=== PATIENT | male | born 1945 ===

== ENCOUNTER 2024-11-24 05:21 | Observation (INO) | payer MEDICARE, OTHER, SELFPAY ==
[2024-11-23 22:10] VITALS: BP 140/65
[2024-11-23 22:41] LABS: % Basophils 0.5 % (0-2); % Eosinophils 2.8 % (0-6); % Immature Granulocytes 0.7 % (0-0.5); % Lymphocytes 24.5 % (20.5-51.1); % Monocytes 7.4 % (1.7-9.3); % Neutrophils 64.1 % (42.2-75.2); Absolute Eosinophils 0.2 10^3/uL (0-0.7); Absolute Immature Granulocytes 0.1 10^3/uL (0-0.05); Absolute Lymphocytes 2.1 10^3/uL (1.2-3.4); Absolute Monocytes 0.6 10^3/uL (0.1-0.6); Absolute Neutrophils 5.6 10^3/uL (1.4-6.5); Hematocrit 34.4 % (39.0-52.0); Mean Corpuscular Hgb 26.3 pg (27.0-31.0); Mean Corpuscular Volume 82.3 fL (80.0-94.0); Mean Platelet Volume 10.6 fL (7.4-10.4); Nucleated Red Blood Cells % 0 % (-); Platelet Count 153 10^3/uL (130-400); Red Blood Cell Count 4.18 10^6/uL (4.70-6.10); Red Cell Dist. Width 14.7 % (11.5-14.5); White Blood Cell Count 8.7 10^3/uL (4.8-10.8)
[2024-11-23 22:55] LABS: ALT (SGPT) 17 U/L (0-50); AST (SGOT) 19 U/L (17-59); Albumin 3.8 g/dl (3.5-5.0); Alkaline Phosphatase 53 U/L (38-126); Blood Urea Nitrogen 17 mg/dl (9-20); Calcium 8.9 mg/dl (8.4-10.2); Carbon Dioxide 26 mmol/L (22-30); Chloride 106 mmol/L (98-107); Glucose 84 mg/dl (70-99); Potassium 4.5 mmol/L (3.5-5.1); Sodium 140 mmol/L (135-145); Total Bilirubin 0.3 mg/dl (0.2-1.3); Total Protein 6.3 g/dl (6.3-8.2); eGFR > 60.00
[2024-11-23 23:03] LABS: Troponin I < 0.012 ng/ml
[2024-11-24] VITALS (10 sets, daily range): BP systolic 129–187; BP diastolic 48–81
[2024-11-24 01:57] LABS: Troponin I < 0.012 ng/ml
--- NOTE | 2024-11-24 02:38 | ED.GENMED ---
History of Present Illness
General
Chief Complaint: Chest Pain
Source: patient
Exam Limitations: none
Time Seen by Provider: 11/24/24 01:44
Nursing documentation reviewed up to this point in time: agreed with
History of Present Illness
History of Present Illness:
79-year-old male past medical history of diabetes, GERD, hypertension presenting to the emergency department today with concerns of chest pain shortness of breath lightheadedness over the past 2 days. He is also noted some increasing leg swelling
does take Lasix. Chest pain described as pressure nonradiating shortness of breath worse with exertion.
Review of Systems
Review of Systems
Allergies reviewed?: Yes
All Other Systems: ROS reviewed and negative except as documented in HPI and ROS
Phy Exam
Physical Exam
Physical Exam:
GENERAL: Alert , in no apparent distress
EYE: pupils equal and reactive
NECK: Supple, no significant adenopathy.
ENT: o/p clr, mmm.
CARDIAC: Regular rate and rhythm .
LUNGS: Clear breath sounds bilaterally, no acute respiratory distress, no wheezes/rales/rhonchi
ABDOMEN: Soft, without focal tenderness, no r/g, no cvat
NEUROLOGICAL: Alert and oriented, no focal neuro deficits
SKIN: Warm and dry, skin intact.
MUSCULOSKELETAL: +1 pitting edema bilaterally distal to the knees, well perfused.
PSYCH: Normal and appropriate interaction.
Scores
Heart Score for Chest Pain Patients
STEMI patient?: No
History: Moderately Suspicious
ECG: Nonspecific Repolarization
Age: >/= 65 years
Risk Factors: >/= 3 Risk Factors or History of CAD
Troponin: </= Normal Limit
Heart Score for Chest Pain Patients: 6
Heart Score Risk: 20.3% MACE over next 6 weeks
Course
Orders/Labs/Results
Orders:
Orders
11/23/24 22:06
EKG [Electrocardiogram (*1)] Urgent
Reason for Study: Chest Pain
EKG- Treatment ONCE
11/23/24 22:32
Complete Blood Count/With Diff Urgent
Comprehensive Metabolic Panel Urgent
Troponin I Urgent
11/24/24 01:15
EKG [Electrocardiogram (*1)] Urgent
Reason for Study: Chest Pain
Other Reason for Exam: REPEAT EKG
EKG- Treatment ONCE
11/24/24 01:21
Troponin I Urgent
11/24/24 01:44
Chest [CR Chest - 2 Views ] Urgent
Comment: occasionally feels sob
Reason For Exam: chest pain
11/24/24 02:19
Add On- LAB Urgent
Tests Added?: BNP
11/24/24 02:36
Aspirin 325 mg PO NOW STA
Furosemide [Lasix] 40 mg IV ONCE ONE
Abnormal Lab Results
11/23/24 11/24/24
22:32 02:54
RBC 4.18 L 10^6/uL
(4.70-6.10)
Hgb 11.0 L g/dL
(13.0-18.0)
Hct 34.4 L %
(39.0-52.0)
MCH 26.3 L pg
(27.0-31.0)
MCHC 32.0 L g/dL
(33.0-37.0)
RDW 14.7 H %
(11.5-14.5)
MPV 10.6 H fL
(7.4-10.4)
Abs Immat Gran (auto) 0.1 H 10^3/uL
(0-0.05)
Immature Gran % 0.7 H %
(0-0.5)
Creatinine 0.6 L mg/dL
(0.7-1.3)
POC Glucose 115 H mg/dl
(70-99)
11/23/24 22:32
11/23/24 22:32
Vital Signs
Initial and Last Documented VS:
Initial Vital Signs
Temp Pulse Resp BP Pulse Ox
97.9 F 73 22 140/65 95
11/23/24 22:10 11/23/24 22:10 11/23/24 22:10 11/23/24 22:10 11/23/24 22:10
Last Documented Vital Signs
Temp Pulse Resp BP Pulse Ox
97.9 F 78 18 141/69 95
11/23/24 22:10 11/24/24 03:05 11/24/24 02:10 11/24/24 03:05 11/24/24 02:10
MDM/Problems Addressed
MDM/Problems Addressed:
79-year-old male presenting to the emergency department today with concerns of chest pressure over the past 2 days associated shortness of breath worse with exertion some lightheadedness with blood pressure. On arrival here blood pressures normal
range other vital signs normal. Labs without acute abnormalities troponin negative EKG without acute changes chest x-ray showing potential increased vascular markings as well as potential evidence of edema. Symptoms potentially consistent with
heart failure exacerbation. Was given IV dose of Lasix. Plan to admit due to worsening symptoms as an outpatient despite oral diuretic treatment.
*Critical Care Note
Total Time (30-74mins, 75-104mins- exclusive of procedures): Not Applicable
ED Attending Note
-
Portions of this chart may have been created with voice recognition software.� Occasional wrong word or��sound alike� substitutions may have occurred due to the inherent limitations of voice recognition software.
Discharge Plan
Departure
Patient Disposition: Admit
Date of Disposition: 11/24/24
Time of Disposition: 02:42
Admit to: Telemetry
Admit to doctor: Gerard
Presentation/result/management discussed w/ accepting MD/DO: Hospitalist
Patient with high blood pressure during this ER visit?: No
Condition: Fair
Covid-19: Not Applicable
Discharge Problem:
Acute exacerbation of CHF (congestive heart failure)
Prescriptions:
No Action
clonidine HCl 0.1 MG tablet
0.1 mg PO DAILY
allopurinol 300 MG tablet
300 mg PO DAILY
olmesartan [Benicar] 40 MG tablet
40 mg PO DAILY
furosemide [Lasix] 40 MG tablet
40 mg PO DAILY
carvedilol [Coreg] 25 MG tablet
25 mg PO BID
omeprazole 40 MG capsule,delayed release(DR/EC)
40 mg PO DAILY
aspirin [Aspir-Low] 81 MG tablet,delayed release (DR/EC)
81 mg PO DAILY
amlodipine [Norvasc] 10 MG tablet
10 mg PO DAILY
hydralazine 100 MG tablet
50 mg PO BID
metformin 1,000 MG tablet
1,000 mg PO DAILY
fluticasone propionate 1 SPRAY spray,suspension
1 spray intranasal DAILY
pravastatin 40 MG tablet
40 mg PO DAILY
dulaglutide [Trulicity] 3 MG/0.5 ML pen injector
1.5 mg SQ DIRECTED
Cholecalciferol (Vitamin D3) [Vitamin D3] 50 MCG Capsule
50 mcg PO DAILY
insulin glargine [Lantus Solostar U-100 Insulin] 300 UNITS/3 ML insulin pen
Referrals:
Christopher Garza MD [Family Provider, Family Practice]
Interventions
Interventions:
*Risk Screen - Suicide Last Done: 11/23/24 22:10
*General Assessment Last Done: 11/23/24 22:10
*Neglect/Abuse Screening Last Done: 11/23/24 22:10
*ED- Fall Risk Assessment Last Done: 11/24/24 02:07
*ED COVID-19 Vaccine History Last Done: 11/24/24 02:07
ED- Cardiac Assessment Last Done: 11/24/24 02:10
Discharge Date and Time
Print Language: TONGAN
[2024-11-24 02:55] LABS: Glucose - Point of Care 115 mg/dl (70-99)
[2024-11-24] MEDS: LASIX 40 MG IV ×3 (03:05→16:00)
[2024-11-24] MEDS: ASPIRIN 325 MG PO (03:05)
[2024-11-24 03:51] LABS: NT-proBNP 302 pg/ml
--- NOTE | 2024-11-24 05:06 | HPS.HSE ---
Family Physician
-
Family Physician: Christopher Garza MD
Chief Complaint
-
Chest Pain, SOB
History of Present Illness
Patient is a 79y M with PMH significant for ASCVD, HTN and DM-II who presents to ED complaining of chest heaviness and SOB. Patient states that he was hospitalized at [facility] about 3 weeks ago and was treated for pneumonia. He feels improved
from that hospitalization; however, he notes residual chest heaviness and shortness of breath - especially with any exertion / activity. He has no remaining cough, fevers / chills, etc. Patient denies any LE swelling, noted weight gain, etc. He
presented to the ED this evening for further evaluation and treatment.
Medical History
Past Medical History
Past Medical History: Reports Other
Additional Past Medical History:
ASCVD / PAD
Hypertension
DM-II
Peripheral Neuropathy
Meningioma
COPD
BPH
Gout
Past Surgical History: Reports Other
Additional Past Surgical History:
Appendectomy
Bilateral LE Stents
Social History
Tobacco: Smoker (Current every day smoker (none in past 3 weeks since pneumonia hospitalization). > 50 pack years total.)
Alcohol: None
Drug: None
Family History
Family History: Not pertinent
Allergies / Home Medications
Allergies reflects when Allergies were last updated in [employer].
Home Medications with original date entered in [employer]
Allergy/Medication List:
Allergies
Allergy/AdvReac Type Severity Reaction Status Date / Time
No Known Drug Allergies Allergy Pharmacy Verified 10/15/21 11:01
to Review
Home Medications
Cholecalciferol (Vitamin D3) [Vitamin D3] 50 mcg PO DAILY 07/15/21
allopurinol 300 mg tablet 300 mg PO DAILY 07/15/21
amlodipine 10 mg tablet (Norvasc) 10 mg PO DAILY 07/15/21
aspirin 81 mg tablet,delayed release (Aspir-Low) 81 mg PO DAILY 07/15/21
carvedilol 25 mg tablet (Coreg) 25 mg PO BID 07/15/21
clonidine HCl 0.1 mg tablet 0.1 mg PO BID 07/15/21
dulaglutide 3 mg/0.5 mL subcutaneous pen injector (Trulicity) 1.5 mg SQ DIRECTED 07/15/21
fluticasone propionate 50 mcg/actuation nasal spray,suspension 1 spray intranasal DAILY 07/15/21
furosemide 40 mg tablet (Lasix) 40 mg PO DAILY 07/15/21
hydralazine 100 mg tablet 100 mg PO TID 07/15/21
metformin 1,000 mg tablet 1,000 mg PO BID 07/15/21
olmesartan 40 mg tablet (Benicar) 40 mg PO DAILY 07/15/21
omeprazole 40 mg capsule,delayed release 40 mg PO DAILY 07/15/21
pravastatin 40 mg tablet 40 mg PO HS 07/15/21
insulin glargine 100 unit/mL (3 mL) subcutaneous pen (Lantus Solostar U-100 Insulin) 50 unit SC HS 08/06/21
acetaminophen 650 mg tablet 1,300 mg PO Q8H PRN Moderate pain 11/24/24
chlorthalidone 25 mg tablet 25 mg PO DAILY 11/24/24
colchicine 0.6 mg tablet 0.6 mg PO DAILY 11/24/24
duloxetine 60 mg capsule,delayed release 60 mg PO DAILY 11/24/24
finasteride 5 mg tablet 5 mg PO DAILY 11/24/24
gabapentin 300 mg capsule 300 mg PO TID 11/24/24
glimepiride 4 mg tablet 4 mg PO DAILY 11/24/24
meloxicam 15 mg tablet 15 mg PO DAILY 11/24/24
oxybutynin chloride 5 mg tablet,extended release 24 hr 5 mg PO DAILY 11/24/24
polyethylene glycol 3350 17 gram oral powder packet (Miralax) 17 g PO DAILY 11/24/24
tamsulosin 0.4 mg capsule 0.4 mg PO DAILY 11/24/24
trazodone 50 mg tablet 50 mg PO HS 11/24/24
Review of Systems
-
History Source: Patient
A 12 point ROS was completed and negative except as noted: Yes
Constitutional: Reports Fatigue; Denies Fever or Chills
EENT: Denies Sore Throat
Respiratory: Reports Trouble Breathing; Denies Cough or Hemoptysis
Cardiac: Reports Chest Pain; Denies Diaphoresis, Palpitations or Syncope
Abdomen/GI: Denies Abdominal Pain, Nausea or Vomiting
: Denies Dysuria or Frequency
Musculoskeletal: Denies Joint Pain or Edema
Neurological: Denies Dizzy or Headache
Psych: Denies Depression or Anxiety
Physical Exam
Vital Signs
Vital Signs
Temp Pulse Resp BP Pulse Ox
97.9 F 72 16 141/69 92
11/23/24 22:10 11/24/24 03:14 11/24/24 03:14 11/24/24 03:14 11/24/24 03:14
Physical Exam
General: Other (79y M in no acute distress.)
HEENT: Moist mucous membranes, PERRLA and Other (Thick neck.)
Respiratory: Other (Decreased BS at bases - otherwise clear. No rales and no wheezing.)
Cardiac: S1/S2 and Regular Rhythm; No Murmur
GI: Non Tender, Non Distended, Normal Bowel Sounds and Other (Obese / protuberant.)
Musculoskeletal: No Clubbing, No Cyanosis and Other (Trace lower extremity edema.)
Neuro: AO x 3
Laboratory Results
-
11/23/24 22:32
11/23/24 22:32
Laboratory Results
Total Bilirubin 0.3 mg/dl (0.2-1.3) 11/23/24 22:32
AST 19 U/L (17-59) 11/23/24 22:32
ALT 17 U/L (0-50) 11/23/24 22:32
Alkaline Phosphatase 53 U/L (38-126) 11/23/24 22:32
Troponin I < 0.012 ng/ml 11/24/24 01:21
Impression/Plan
-
A/P: Patient is a 79y M with PMH significant for hypertension, DM-II and recent hospitalization for pneumonia who presents to ED complaining of chest heaviness and SOB.
Chest Heaviness / SOB
- Observe overnight for further evaluation and treatment.
- Unclear etiology of symptoms. ACS v CHF v COPD v other.
- Troponin undetectable x 2. Complete 3rd set in AM.
- EKG without evidence of active ischemia.
- Continue current CV med regimen.
- Follow for any new / worsening symptoms.
- Check Echo.
- No significant evidence of volume overload and doubt acute HF exacerbation.
ASCVD / PAD
- Stable. Continue CV med regimen as noted above.
- No current complaints of claudication / lower extremity pain, etc.
COPD
- Likely contributing to current dyspnea - especially after recent pneumonia.
- Obtain records from [facility] for review.
- Nebs ATC and PRN.
- Observe off of systemic steroids for now.
DM-II
- Stable. Continue current basal insulin + SSI coverage as needed.
- Update A1C.
BPH
- Stable. Continue finasteride / tamsulosin.
History of Gout
- Currently on allopurinol and colchicine for prophylaxis.
Obesity due to excess calories
- Affects all aspects of care - including dyspnea sensation.
- Would likely benefit from formal PSG to evaluate for sleep apnea given body habitus.
Polypharmacy
- Extensive medication list. Attempt to consolidate if possible.
DVT Prophylaxis: Lovenox
Code Status: Full
--- NOTE | 2024-11-24 07:51 | W.PN.HOSP.TC ---
Today's Communication/Plan
-
See PN
Assessment / Plan
Assessment / Plan
79yo M with PMHx of CHF, HTN, DM, neuropathy, urinary retention, HLD, BPH, insomnia, on polypharmacy, with recent admission to [facility] around 3 weeks before current admission came with peristent nausea with sweating started right after
his discharge from that hospital. He completed his home Abx course. No abdominal pain reported. Patient however was not taking his meds as prescribed since he felt nauseous while taking them.
A/P:
#Unspecified nausea without abd pain or vomiting
Unclear reason
Pending official Chest XR read with recent pneumonia, but respiratory symptoms resolved
check TSH, HGba1c, Lipase
Cannot r/o polypharmacy, patient is a poor historian, does not know what meds and for what he is taking in the most part. Will need to obtain colateral Hx form family
Potential offenders: two diuretics, colchicine, metformin, meloxicam, trasodone
Non-specific abnormalities on CBC
No LFT abnormalities
Zofran
#Concern for chest pain on admission
trop WNL
EKG without TWI or ST elevation, no concern for ACS
in fact patient does not complain about any chest pain
#Most likely with JOANN
outpatient sleep study recommended with PCP
#DM type 2 with neuropathy
cont home meds
Accuchecks, insulin SS, DM diet
hold metformin
#Chronic CHF
milfd LE swelling with proBNP 300 - no significant signs of fluid overload. At most - acute on chronic CHF 2/2 med noncompliance
Echo
#Essential HTN, resistant
#BPH
#Insomnia
#HLD
#MDD
cont home meds
adjust meds as duplicate exist: chlorthalidone and Lasix
DVT ppx SCDs
Full code
I have spent at least 58min reviewing chart, test results, communication with family and providing direct patient care
Anticipated Discharge: Within 24 hours
Subjective/Interval History
-
Date of Service: November 24, 2024
Objective Data
-
Labs:
Laboratory Results
11/23/24
22:32
WBC 8.7
Hgb 11.0 L
Hct 34.4 L
Plt Count 153
Sodium 140
Potassium 4.5
Chloride 106
Carbon Dioxide 26
BUN 17
Creatinine 0.6 L
Glucose 84
Calcium 8.9
Total Bilirubin 0.3
AST 19
ALT 17
Alkaline Phosphatase 53
Vital Signs:
Vital Signs
Temp Pulse Resp BP Pulse Ox
97.9 F 76 20 155/73 93
11/23/24 22:10 11/24/24 05:08 11/24/24 05:08 11/24/24 05:08 11/24/24 05:08
I&O
11/23/24 11/24/24 11/25/24
06:59 06:59 06:59
Output Total 500 / 500
Balance -500 / -500
Review of Systems
-
History Source: Patient
All other systems: Reviewed and negative
Abdomen/GI: Reports Nausea
Physical Exam
-
General: No Apparent Distress
HEENT: Normocephalic
Respiratory: Clear to Auscultation; Negative Wheezes
Cardiac: Regular Rhythm
GI: Soft, Nontender and Nondistended
Musculoskeletal: No Clubbing, No Cyanosis, Edema, Right Lower Extrem and Edema, Left Lower Extrem
Skin: Warm
Neuro: Awake, Alert, Oriented, AO x 3, No Motor Deficits and Nonfocal/Grossly Intact
Psych: Calm
[2024-11-24] MEDS: ZOFRAN 4 MG IV ×4 (08:06→23:37)
[2024-11-24 08:53] LABS: Lipase 59 U/L (23-300)
[2024-11-24 09:25] LABS: TSH Reflex To Free T4 2.12 uIU/ml (0.47-4.68)
[2024-11-24 09:47] LABS: Glucose - Point of Care 83 mg/dl (70-99)
[2024-11-24 10:06] LABS: Glycohemoglobin (HgbA1c) 7.8 % (4.0-5.6)
[2024-11-24] MEDS: NEURONTIN 300 MG PO (10:29)
[2024-11-24] MEDS: BENICAR 40 MG PO (10:29)
[2024-11-24] MEDS: CYMBALTA DELAYED RELEASE 60 MG PO (10:29)
[2024-11-24] MEDS: ASPIR LOW (ENTERIC COATED) 81 MG PO (10:30)
[2024-11-24] MEDS: COLCHICINE 0.6 MG PO (10:30)
[2024-11-24] MEDS: PROTONIX 40 MG PO (10:30)
[2024-11-24] MEDS: COREG 25 MG PO (10:30)
[2024-11-24] MEDS: FLOMAX 0.4 MG PO (10:30)
[2024-11-24] MEDS: ZYLOPRIM 300 MG PO (10:30)
[2024-11-24] MEDS: LASIX 40 MG PO (10:30)
[2024-11-24] MEDS: PROSCAR 5 MG PO (10:31)
[2024-11-24] MEDS: NOVOLOG FLEXPEN-MODERATE RESISTANCE SC ×3 (10:31→17:01)
--- NOTE | 2024-11-24 10:34 | W.PN.UPDATE ---
Update Note
Progress Note Update
Colchicine is for Gout and patient takes it during flares only
Usual nausea with uncontrolled BP as per family. Most likely exacerbated by untreeated JOANN. Sleep study will need to be done by PCP - son verbalized understanding. Will attempt to control BP, provide extra dose of lasix and after Echo - D/C
[2024-11-24] MEDS: DUONEB INH (10:46)
[2024-11-24 12:17] LABS: Glucose - Point of Care 106 mg/dl (70-99)
[2024-11-24] MEDS: DUONEB 3 ML INH ×3 (12:18→20:27)
--- NOTE | 2024-11-24 12:26 | W.PN.UPDATE ---
Update Note
Progress Note Update
#Acute hypoxic insufficiency 2/2 milf HFpEF exacerbation
Lasix, daily weight, follow electrolytes and Cr
wean off O2
#Medication non-compliance
As per further conversation with granddaughter bedside- patient not compliant with meds and takes them 'As needed'
Will hold off Clonidine and Hydralazine and decrease carvedilol to avoid hypotension, follow BP
[2024-11-24 13:17] LABS: Magnesium 1.5 mg/dl (1.6-2.3); Phosphorus 3.4 mg/dl (2.5-4.5)
[2024-11-24] MEDS: MAGNESIUM SULFATE 50 IV (13:43)
--- NOTE | 2024-11-24 16:17 | W.PN.UPDATE ---
Update Note
Progress Note Update
Not clear explanation of hypoxia with minimal pyulmonary edema on XR. Will check DDimer since Wells score low. If elevated CTA chest, otherwise - CT w/o contrast to avoid possibility AVNI with IV diuresis
[2024-11-24 16:40] LABS: Glucose - Point of Care 141 mg/dl (70-99)
[2024-11-24 17:06] LABS: Lactic Acid 1.4 mmol/L (0.7-2.0)
[2024-11-24] MEDS: LOVENOX 40 MG SC (17:10)
[2024-11-24] MEDS: REGLAN 5 MG IV (17:39)
[2024-11-24] MEDS: OMNIPAQUE 50 ML PO (17:42)
[2024-11-24] MEDS: COREG 12.5 MG PO (20:50)
[2024-11-24 21:48] LABS: Glucose - Point of Care 171 mg/dl (70-99)
[2024-11-24] MEDS: DESYREL 50 MG PO (22:50)
[2024-11-24] MEDS: LANTUS 0.5 UNITS SC (22:50)
[2024-11-24] MEDS: PRAVACHOL 40 MG PO (22:51)
[2024-11-25] VITALS (9 sets, daily range): BP systolic 93–162; BP diastolic 45–77
[2024-11-25 07:18] LABS: Glucose - Point of Care 102 mg/dl (70-99)
[2024-11-25] MEDS: NOVOLOG FLEXPEN-MODERATE RESISTANCE SC ×2 (07:31→16:06)
[2024-11-25] MEDS: DUONEB 3 ML INH ×4 (08:17→20:22)
[2024-11-25 08:56] LABS: Hematocrit 35.9 % (39.0-52.0); Hemoglobin 11.5 g/dL (13.0-18.0); Mean Corpuscular Hgb 26.1 pg (27.0-31.0); Mean Corpuscular Volume 81.4 fL (80.0-94.0); Mean Platelet Volume 10.8 fL (7.4-10.4); Platelet Count 150 10^3/uL (130-400); Red Blood Cell Count 4.41 10^6/uL (4.70-6.10); Red Cell Dist. Width 14.5 % (11.5-14.5); White Blood Cell Count 6.8 10^3/uL (4.8-10.8)
[2024-11-25 09:17] LABS: Troponin I 0.016 ng/ml
[2024-11-25 09:32] LABS: Blood Urea Nitrogen 16 mg/dl (9-20); Calcium 8.8 mg/dl (8.4-10.2); Carbon Dioxide 35 mmol/L (22-30); Chloride 99 mmol/L (98-107); Glucose 101 mg/dl (70-99); Magnesium 1.5 mg/dl (1.6-2.3); Potassium 3.9 mmol/L (3.5-5.1); Sodium 139 mmol/L (135-145); eGFR > 60.00
[2024-11-25] MEDS: BENICAR 40 MG PO (09:43)
[2024-11-25] MEDS: CYMBALTA DELAYED RELEASE 60 MG PO (09:43)
[2024-11-25] MEDS: ASPIR LOW (ENTERIC COATED) 81 MG PO (09:43)
[2024-11-25] MEDS: FLOMAX 0.4 MG PO (09:43)
[2024-11-25] MEDS: ZYLOPRIM 300 MG PO (09:43)
[2024-11-25] MEDS: PROTONIX 40 MG PO (09:44)
[2024-11-25] MEDS: LASIX 40 MG IV ×2 (09:44→17:26)
[2024-11-25] MEDS: PROSCAR 5 MG PO (09:44)
[2024-11-25] MEDS: COREG 12.5 MG PO ×2 (09:44→21:14)
[2024-11-25] MEDS: ZOFRAN 4 MG IV (09:51)
[2024-11-25] MEDS: MAGNESIUM SULFATE 100 IV (09:51)
--- NOTE | 2024-11-25 11:03 | CM ---
Patient seen bedside, patient encouraged CM to speak w/ son for initial assessment as he is limited in [place]. Patient is a 79y M with PMH significant for ASCVD, HTN and DM-II who presents to ED complaining of chest heaviness and SOB.
CM spoke w/ patient's son, Tristen. Per Tristen, patient resides w/ spouse in a 1st flr apartment- no steps. Independent w/ use of a cane, independent w/ADLs. Has additional shower chair and grab bar in the bathroom. No SNF/HC hx reported. Tristen shared
spouse certainly had HC but not patient.
Address, point of contact and insurance verified
PCP: Christopher Garza
Pharmacy: [facility]
Patient admitted as obs. ROACH form explained to Tristen, copy on chart
Plan: Home, no needs anticipated
[2024-11-25 12:35] LABS: Glucose - Point of Care 179 mg/dl (70-99)
--- NOTE | 2024-11-25 12:58 | W.PN.HOSP.TC ---
Today's Communication/Plan
-
home O2 eval
Assessment / Plan
Assessment / Plan
79yo M with PMHx of CHF, HTN, DM, neuropathy, urinary retention, HLD, BPH, insomnia, on polypharmacy, with recent admission to [facility] around 3 weeks before current admission came with peristent nausea with sweating started right after
his discharge from that hospital. He completed his home Abx course. No abdominal pain reported. Patient however was not taking his meds as prescribed since he felt nauseous while taking them.
A/P:
#Unspecified nausea without abd pain or vomiting
Unclear reason
Pending official Chest XR read with recent pneumonia, but respiratory symptoms resolved
check TSH, HGba1c, Lipase
Cannot r/o polypharmacy, patient is a poor historian, does not know what meds and for what he is taking in the most part. Will need to obtain colateral Hx form family
Potential offenders: two diuretics, colchicine, metformin, meloxicam, trasodone
Non-specific abnormalities on CBC
No LFT abnormalities
Zofran
#Subcentimeter hypodense right thyroid lesion
US with PCP
#Left adrenal nodule likely a benign adrenal adenoma
#Solid L renal mass
MRI as outpatient with PCP - patient and son bedside verbalized understanding
#Acute hypoxic insufficiency 2/2 mild HFpEF exacerbation
Lasix, daily weight, follow electrolytes and Cr
wean off O2
DDimer low, with wells 0 - no concern for VTE
CT chest without edema or pneumonia
Echo: Ef 55-60%, nomal diastolic function, Elevated pulmonary pressure, most liekly 2/2 JOANN - stressed need for outpatient sleep study - patient and son bedside verbalized understanding
#Medication non-compliance
As per further conversation with granddaughter bedside- patient not compliant with meds and takes them 'As needed'
Will hold off Clonidine and decrease hydralazine and carvedilol to avoid hypotension, follow BP
#Concern for chest pain on admission
trop WNL
EKG without TWI or ST elevation, no concern for ACS
in fact patient does not complain about any chest pain
#Most likely with JOANN
outpatient sleep study recommended with PCP
#DM type 2 with neuropathy
cont home meds
Accuchecks, insulin SS, DM diet
hold metformin
#Chronic CHF
milfd LE swelling with proBNP 300 - no significant signs of fluid overload. At most - acute on chronic CHF 2/2 med noncompliance
Echo
#Essential HTN, resistant
#BPH
#Insomnia
#HLD
#MDD
cont home meds
adjust meds as duplicate exist: chlorthalidone and Lasix
DVT ppx SCDs
Full code
I have spent at least 38min reviewing chart, test results, communication with family and providing direct patient care
Anticipated Discharge: Within 24 hours
Subjective/Interval History
-
Date of Service: November 25, 2024
Objective Data
-
Labs:
Laboratory Results
11/25/24
08:26
WBC 6.8
Hgb 11.5 L
Hct 35.9 L
Plt Count 150
Sodium 139
Potassium 3.9
Chloride 99
Carbon Dioxide 35 H
BUN 16
Creatinine 0.8
Glucose 101 H
Calcium 8.8
Vital Signs:
Vital Signs
Temp Pulse Resp BP Pulse Ox
98.0 F 80 16 144/64 92
11/25/24 11:15 11/25/24 12:02 11/25/24 12:02 11/25/24 11:15 11/25/24 11:15
I&O
11/24/24 11/25/24 11/26/24
06:59 06:59 06:59
Intake Total 720 / 720
Output Total 500 / 500 1100 / 1100
Balance -500 / -500 -380 / -380
Review of Systems
-
History Source: Patient
All other systems: Reviewed and negative
Physical Exam
-
General: No Apparent Distress
HEENT: Normocephalic
Respiratory: Clear to Auscultation
GI: Soft, Nontender and Nondistended
Musculoskeletal: No Clubbing, No Cyanosis and No Edema
Neuro: Awake, Alert, Oriented and AO x 3
Psych: Calm
[2024-11-25] MEDS: NOVOLOG FLEXPEN-MODERATE RESISTANCE 1 UNITS SC (13:51)
[2024-11-25 16:04] LABS: Glucose - Point of Care 136 mg/dl (70-99)
[2024-11-25] MEDS: LOVENOX 40 MG SC (17:26)
[2024-11-25] MEDS: APRESOLINE 25 MG PO ×2 (17:27→21:14)
[2024-11-25] MEDS: PRAVACHOL 40 MG PO (21:14)
[2024-11-25] MEDS: LANTUS 0.5 UNITS SC (21:14)
[2024-11-25] MEDS: DESYREL 50 MG PO (21:14)
[2024-11-25 21:15] LABS: Glucose - Point of Care 200 mg/dl (70-99)
[2024-11-26 03:00] VITALS: BP 145/70
[2024-11-26 07:00] VITALS: BP 152/54
[2024-11-26 07:39] LABS: Blood Urea Nitrogen 19 mg/dl (9-20); Calcium 8.8 mg/dl (8.4-10.2); Carbon Dioxide 37 mmol/L (22-30); Chloride 99 mmol/L (98-107); Glucose 104 mg/dl (70-99); Magnesium 1.7 mg/dl (1.6-2.3); Potassium 3.7 mmol/L (3.5-5.1); Sodium 142 mmol/L (135-145); eGFR > 60.00
[2024-11-26 07:45] LABS: Glucose - Point of Care 99 mg/dl (70-99)
[2024-11-26] MEDS: NOVOLOG FLEXPEN-MODERATE RESISTANCE SC ×2 (07:47→11:36)
[2024-11-26] MEDS: DUONEB 3 ML INH ×3 (07:49→15:54)
[2024-11-26] MEDS: BENICAR 40 MG PO (08:31)
[2024-11-26] MEDS: PROTONIX 40 MG PO (08:31)
[2024-11-26] MEDS: ASPIR LOW (ENTERIC COATED) 81 MG PO (08:31)
[2024-11-26] MEDS: CYMBALTA DELAYED RELEASE 60 MG PO (08:31)
[2024-11-26] MEDS: MAGNESIUM SULFATE 50 IV (08:31)
[2024-11-26] MEDS: LASIX 40 MG IV ×2 (08:32→15:33)
[2024-11-26] MEDS: PROSCAR 5 MG PO (08:32)
[2024-11-26] MEDS: APRESOLINE 25 MG PO ×2 (08:32→15:34)
[2024-11-26] MEDS: COREG 12.5 MG PO (08:32)
[2024-11-26] MEDS: FLOMAX 0.4 MG PO (08:32)
[2024-11-26] MEDS: ZYLOPRIM 300 MG PO (08:32)
[2024-11-26] MEDS: ZOFRAN 4 MG IV (08:48)
[2024-11-26 11:00] VITALS: BP 137/58
[2024-11-26 11:35] LABS: Glucose - Point of Care 148 mg/dl (70-99)
--- NOTE | 2024-11-26 11:58 | CM ---
Discussed w/ hospitalist, patient stable for d/c today.
Home O2 assessed, patient requiring 4L O2. O2 request sent to [facility] via fax. Portable to be delivered to patient bedside, concentrator will be delivered to patient's home
Updated patient on O2 needs
Plan: D/c home today w/ O2 thru [employer]
--- NOTE | 2024-11-26 12:09 | W.PN.HOSP.TC ---
Today's Communication/Plan
-
dc
Assessment / Plan
Assessment / Plan
79yo M with PMHx of CHF, HTN, DM, neuropathy, urinary retention, HLD, BPH, insomnia, on polypharmacy, with recent admission to [facility] around 3 weeks before current admission came with peristent nausea with sweating started right after
his discharge from that hospital. He completed his home Abx course. No abdominal pain reported. Patient however was not taking his meds as prescribed since he felt nauseous while taking them. Nausea resolved with diuresis, supplemental O2, holding
metformin. Seems euvolemic on assessment. Unclear if O2 requirements are new or previous intermittent hypoxia. Medically stable for d/c home with supplemental O2 as per home O2 assesmen: 3L rest and 4L on exertion and to follow with established
rabbit breeder PRINCESS. Lasix to be increased to BID and BMP recommended in 3-5 days with PCP - patient and family informed on instructions. Solid L renal mass and L adrenal adenoma will need MRI with PCP - family verbalized understanding of the
instructions. thyroid nodule known to patient and he had biopsy for it - benign as per son Medically stable for d/c home with home O2 when arranged by CM
A/P:
#Unspecified nausea without abd pain or vomiting
Unclear reason
TSH, Lipase WNL
Cannot r/o polypharmacy, patient is a poor historian, does not know what meds and for what he is taking in the most part. Will need to obtain collateral Hx form family
Potential offenders: two diuretics, colchicine, metformin, meloxicam, trazodone
Non-specific abnormalities on CBC
No LFT abnormalities
Zofran
#Subcentimeter hypodense right thyroid lesion
US with PCP
#Left adrenal nodule likely a benign adrenal adenoma
#Solid L renal mass
MRI as outpatient with PCP - patient and son bedside verbalized understanding
#Acute hypoxic insufficiency 2/2 mild HFpEF exacerbation
Lasix, daily weight, follow electrolytes and Cr
wean off O2
DDimer low, with wells 0 - no concern for VTE
CT chest without edema or pneumonia
Echo: Ef 55-60%, normal diastolic function, Elevated pulmonary pressure, most likely 2/2 JOANN - stressed need for outpatient sleep study - patient and son bedside verbalized understanding
#Medication non-compliance
As per further conversation with granddaughter bedside- patient not compliant with meds and takes them 'As needed'
Will hold off Clonidine and decrease hydralazine and carvedilol to avoid hypotension, follow BP
#Concern for chest pain on admission
trop WNL
EKG without TWI or ST elevation, no concern for ACS
in fact patient does not complain about any chest pain
#Most likely with JOANN
outpatient sleep study recommended with PCP
#DM type 2 with neuropathy
cont home meds
Accuchecks, insulin SS, DM diet
hold metformin
#Chronic CHF
mild LE swelling with proBNP 300 - no significant signs of fluid overload. At most - acute on chronic CHF 2/2 med noncompliance
Echo
#Asymmptomatic cholelithiasis
#R renal angiomyolipomas
#Simple renal cysts
#Essential HTN, resistant
#BPH
#Insomnia
#HLD
#MDD
#Diverticulosis /o diverticulitis
cont home meds
adjust meds as duplicate exist: chlorthalidone and Lasix
DVT ppx SCDs
Full code
I have spent at least 38min reviewing chart, test results, communication with family and providing direct patient care
Anticipated Discharge: Today
Subjective/Interval History
-
Date of Service: November 26, 2024
Objective Data
-
Labs:
Laboratory Results
11/26/24
05:56
Sodium 142
Potassium 3.7
Chloride 99
Carbon Dioxide 37 H
BUN 19
Creatinine 0.8
Glucose 104 H
Calcium 8.8
Vital Signs:
Vital Signs
Temp Pulse Resp BP Pulse Ox
97.5 F 80 16 137/58 99
11/26/24 11:00 11/26/24 11:35 11/26/24 11:35 11/26/24 11:00 11/26/24 11:00
I&O
11/25/24 11/26/24 11/27/24
06:59 06:59 06:59
Intake Total 720 / 720 650 / 650
Output Total 1100 / 1100 1250 / 1250
Balance -380 / -380 -600 / -600
Review of Systems
-
History Source: Patient
All other systems: Reviewed and negative
Physical Exam
-
General: Obese
HEENT: Moist Mucous Membranes
Respiratory: Clear to Auscultation
Cardiac: Regular Rhythm
GI: Soft, Nontender and Nondistended
Musculoskeletal: No Clubbing, No Cyanosis and No Edema
Neuro: Awake, Alert, Oriented and AO x 3
Psych: Calm
--- NOTE | 2024-11-26 12:57 | W.DCSUMMARY ---
Discharge Summary
Discharge Data
Date of Admission: 11/24/24
Date of Discharge: 11/26/24
-
Pending Results: No
Hospital Course
79yo M with PMHx of CHF, HTN, DM, neuropathy, urinary retention, HLD, BPH, insomnia, on polypharmacy, with recent admission to [facility] around 3 weeks before current admission came with peristent nausea with sweating started right after
his discharge from that hospital. He completed his home Abx course. No abdominal pain reported. Patient however was not taking his meds as prescribed since he felt nauseous while taking them. Nausea resolved with diuresis, supplemental O2, holding
metformin. Seems euvolemic on assessment. Unclear if O2 requirements are new or previous intermittent hypoxia. Medically stable for d/c home with supplemental O2 as per home O2 assesmen: 3L rest and 4L on exertion and to follow with established
gang ripsaw operator PRINCESS. Lasix to be increased to BID and BMP recommended in 3-5 days with PCP - patient and family informed on instructions. Solid L renal mass and L adrenal adenoma will need MRI with PCP - family verbalized understanding of the
instructions. thyroid nodule known to patient and he had biopsy for it - benign as per son Medically stable for d/c home with home O2 when arranged by CM
I have spent at least 38min reviewing chart, test results, communication with family and providing direct patient care
Patient was managed for:
#Unspecified nausea without abd pain or vomiting
#Hypomagnesemia
#Subcentimeter hypodense right thyroid lesion
#Left adrenal nodule likely a benign adrenal adenoma
#Solid L renal mass
#Acute hypoxic insufficiency 2/2 mild HFpEF exacerbation
#Medication non-compliance
#Concern for chest pain on admission
#Most likely with JOANN
#DM type 2 with neuropathy
#acute on Chronic diastolic CHF
#Pulmonary HTN
#Asymmptomatic cholelithiasis
#R renal angiomyolipomas
#Simple renal cysts
#Essential HTN, resistant
#BPH
#Insomnia
#HLD
#MDD
#Diverticulosis /o diverticulitis
Discharge Plan
-
Patient Disposition: Home (Routine Discharge)
Discharge Diagnosis/Procedures: Nausea
Diet: No added salt
Driving Restrictions: As prior to admission
Blood Work: BMP with family doctor in 3-5 days
Activity Restrictions/Additional Instructions:
Follow up with established gang ripsaw operator PRINCESS
Referrals:
Christopher Garza MD [Family Provider, Family Practice] - in less than 1 week
Referral Note: #Left adrenal nodule likely a benign adrenal adenoma
#Solid L renal mass
MRI abd attn to kidneys
#Subcentimeter hypodense right thyroid lesion
thyroid US
Prescriptions:
New
hydralazine 25 mg Tablet
25 mg PO TID Qty: 90 0RF
carvedilol 12.5 mg Tablet
12.5 mg PO BID Qty: 60 0RF
ondansetron 4 mg tablet,disintegrating
4 mg PO Q8H PRN (Reason: nausea and vomiting) Qty: 10 0RF
magnesium oxide [MagOx] 400 mg (241.3 mg magnesium) tablet
400 mg PO BID Qty: 60 0RF
Continued
olmesartan [Benicar] 40 MG tablet
40 mg PO DAILY
omeprazole 40 MG capsule,delayed release(DR/EC)
40 mg PO DAILY
aspirin [Aspir-Low] 81 MG tablet,delayed release (DR/EC)
81 mg PO DAILY
fluticasone propionate 1 SPRAY spray,suspension
1 spray intranasal DAILY
pravastatin 40 MG tablet
40 mg PO HS
Cholecalciferol (Vitamin D3) [Vitamin D3] 50 MCG Capsule
50 mcg PO DAILY
insulin glargine [Lantus Solostar U-100 Insulin] 300 UNITS/3 ML insulin pen
50 unit SC HS
trazodone 50 mg Tablet
50 mg PO HS
polyethylene glycol 3350 [Miralax] 17 gram Powder In Packet
17 g PO DAILY
tamsulosin 0.4 mg Capsule
0.4 mg PO DAILY
glimepiride 4 mg Tablet
4 mg PO DAILY
oxybutynin chloride 5 mg Tablet Extended Release 24hr
5 mg PO DAILY
finasteride 5 mg Tablet
5 mg PO DAILY
duloxetine 60 mg Capsule,Delayed Release(Dr/Ec)
60 mg PO DAILY
Changed
furosemide [Lasix] 40 MG tablet
40 mg PO BID Qty: 0 0RF
allopurinol 300 MG tablet
200 mg PO DAILY Qty: 0 0RF
Held
Trulicity 3 MG/0.5 ML pen injector
1.5 mg SQ DIRECTED
Hold Instructions: Until told to restart by your family doctor
Discontinued
clonidine HCl 0.1 MG tablet
0.1 mg PO BID
carvedilol [Coreg] 25 MG tablet
25 mg PO BID
amlodipine [Norvasc] 10 MG tablet
10 mg PO DAILY
hydralazine 100 MG tablet
100 mg PO TID
metformin 1,000 MG tablet
1,000 mg PO BID
meloxicam 15 mg Tablet
15 mg PO DAILY
chlorthalidone 25 mg Tablet
25 mg PO DAILY
acetaminophen 650 mg Tablet
1,300 mg PO Q8H PRN (Reason: Moderate pain)
gabapentin 300 mg Capsule
300 mg PO TID
colchicine 0.6 mg Tablet
0.6 mg PO DAILY
Discharge Orders:
Discharge Patient (As Directed); Ordered 11/26/24
Ordered By: Chucky Yee
Discharge Date and Time
Print Language: MALTESE
[2024-11-26 15:00] VITALS: BP 148/66
[2024-11-26 15:48] LABS: Glucose - Point of Care 303 mg/dl (70-99)
[2024-11-26] MEDS: NOVOLOG FLEXPEN-MODERATE RESISTANCE 7 UNITS SC (15:50)
--- NOTE | 2024-11-26 17:30 | W.PN.UPDATE ---
Update Note
Progress Note Update
Received message from RN that patient was discharged without O2 tank, since he did not want to wait to have it delivered since it was taking too long. AMA form not signed.
Called son, Tristen at 5:40pm, dicussed in details risk of staying off O2, also spoke to the patient at the same time. They scheduled delivery for cO2 concentrator to 6pm and were nearby their house at the time of the call. Requested them to returmn
to the hospital immediately, however patient and son declined and verbalized full responsibility for their choice
--- NOTE | 2024-11-26 18:59 | PTCARENOTE ---
patient was to be discharged today after receiving oxygen tank. pt son was told that o2 tank would be delivered to the hospital by 5pm today. medical underwriter removed IV and went over discharge meds with pt and son before oxygen tank arrived so they could
leave as soon as the tank was here. shortly after 5pm pt son told medical underwriter that he called company that was delivering o2 concentrator to the house and was having it delivered now and was leaving because they no longer wanted to wait for oxygen.
notified about pt leaving. medical underwriter called son and said to return and wait for oxygen, unaware if son hung up or phone line got disconnected but pt did not answer when medical underwriter attempted to call back. spoke with pt and pt son and they were not
returning to hospital.
--- NOTE | 2024-11-28 13:22 | W.PN.UPDATE ---
Update Note
Progress Note Update
Discussed with son on 11/28/24 - O was delivered, patient feeling better and follows with his PCP for ongoing care
== END 2024-11-26 18:25 | disposition home or self-care (01) ==
LOC: 4 WEST ACU 05:21
PROVIDERS: Emergency Medicine; ADMITTING PHYSICIAN Hospitalist; ATTENDING PHYSICIAN Internal Medicine; EMERGENCY PHYSICIAN Student in an Organized Health Care Education/Training Program; FAMILY PHYSICIAN Family Medicine
DX: R07.89 Other chest pain (principal); R11.0 Nausea; G47.33 Obstructive sleep apnea (adult) (pediatric); R06.02 Shortness of breath; R09.02 Hypoxemia; R06.89 Other abnormalities of breathing; M79.89 Other specified soft tissue disorders; R42 Dizziness and giddiness; E66.09 Other obesity due to excess calories; I11.0 Hypertensive heart disease with heart failure; I50.33 Acute on chronic diastolic (congestive) heart failure; K21.9 Gastro-esophageal reflux disease without esophagitis; I25.10 Atherosclerotic heart disease of native coronary artery without angina pectoris; E11.42 Type 2 diabetes mellitus with diabetic polyneuropathy; E11.51 Type 2 diabetes mellitus with diabetic peripheral angiopathy without gangrene; J44.9 Chronic obstructive pulmonary disease, unspecified; M10.9 Gout, unspecified; E04.1 Nontoxic single thyroid nodule; J98.11 Atelectasis; I31.39 Other pericardial effusion (noninflammatory); K80.20 Calculus of gallbladder without cholecystitis without obstruction; D35.02 Benign neoplasm of left adrenal gland; I45.10 Unspecified right bundle-branch block; I08.3 Combined rheumatic disorders of mitral, aortic and tricuspid valves; N28.1 Cyst of kidney, acquired; N28.89 Other specified disorders of kidney and ureter; K57.90 Diverticulosis of intestine, part unspecified, without perforation or abscess without bleeding; N40.1 Benign prostatic hyperplasia with lower urinary tract symptoms; G47.00 Insomnia, unspecified; E83.42 Hypomagnesemia; I27.20 Pulmonary hypertension, unspecified; I1A.0 Resistant hypertension; E78.5 Hyperlipidemia, unspecified; F32.9 Major depressive disorder, single episode, unspecified; D17.71 Benign lipomatous neoplasm of kidney; F17.210 Nicotine dependence, cigarettes, uncomplicated; Z79.82 Long term (current) use of aspirin; Z79.85 Long-term (current) use of injectable non-insulin antidiabetic drugs; Z79.51 Long term (current) use of inhaled steroids; Z79.4 Long term (current) use of insulin; Z79.899 Other long term (current) drug therapy; Z79.84 Long term (current) use of oral hypoglycemic drugs; Z79.1 Long term (current) use of non-steroidal anti-inflammatories (NSAID); Z91.148 Patient's other noncompliance with medication regimen for other reason; Z87.01 Personal history of pneumonia (recurrent); Z90.49 Acquired absence of other specified parts of digestive tract
CPT/HCPCS: 71046; 71250; 74176; 80048; 80053; 82962; 83036; 83605; 83690; 83735; 83880; 84100; 84443; 84484; 85025; 85027; 85379; 93005; 93306; 94640; 96374; 99285; G0378